=== PATIENT | male | born 1955 | race Asian ===

== ENCOUNTER → 2020-08-29 08:00 | Outpatient (CLI) | payer OTHER, SELFPAY ==
[2020-08-29] MEDS: COVID-19 VACC, Ad26(JANSSEN)/PF 0.5 ML IM (08:09)
== END ==
PROVIDERS: Visit Provider Internal Medicine
DX: Z23 Encounter for immunization (principal)
CPT/HCPCS: 0031A; 91303

== ENCOUNTER → 2020-09-26 09:14 | Outpatient (CLI) | payer OTHER, SELFPAY ==
[2020-09-26 10:49] LABS: COVID19 -Nasal RAPID Negative (Negative)
== END ==
PROVIDERS: PCP Family Medicine; Visit Provider Surgery
DX: Z20.822 Contact with and (suspected) exposure to COVID-19 (principal)
CPT/HCPCS: 87635

== ENCOUNTER 2020-09-29 06:30 | Day surgery (SDC) | payer OTHER, SELFPAY ==
[2020-09-29] VITALS (7 sets, daily range): BP systolic 117–160; BP diastolic 73–98; PULSE 68–77; RESP 8–16; TEMP 36.2; O2SAT 96–99; BMI 25.7
--- NOTE | 2020-09-29 | PATH_ITS ---
[facility] Accession Number: [id number] . 01 Material submitted: . PART A: stomach - RANDOM STOMACH BIOPSY PART B: esophagus, E-G Junction - GE JUNCTION PART C: colon - DESCENDING COLON POLYP . 02 Diagnosis: A. Random Stomach, Biopsies: Gastric body mucosa with no diagnostic abnormality. No evidence of Helicobacter organisms on H/E stain. Negative for intestinal metaplasia. Negative for dysplasia and malignancy. . B. Gastroesophageal Junction, Biopsy: Squamocolumnar junctional mucosa with no diagnostic abnormality. Negative for intestinal metaplasia. Negative for dysplasia and malignancy. . C. Descending Colon Polyp, Biopsy: Tubular adenoma. [facility] 10/02/2020 1550 Local . 02 Electronically signed: . Lawrence Walton MD, PhD, Pathologist NPI- [id number] . 01 Gross description: . Part A: RANDOM STOMACH BIOPSY: Received in formalin are 2 fragment(s) of martinez, soft tissue measuring 0.1 x 0.1 x 0.1 cm to 0.3 x 0.2 x 0.2 cm submitted entirely in 1 cassette(s) Part B: GE JUNCTION: Received in formalin is 1 fragment(s) of martinez, soft tissue measuring 0.1 x 0.1 x 0.1 cm submitted entirely in 1 cassette(s) Part C: DESCENDING COLON POLYP: Received in formalin are 2 fragment(s) of martinez, soft tissue measuring 0.2 x 0.2 x 0.2 cm to 0.3 x 0.3 x 0.2 cm submitted entirely in 1 cassette(s) /LETICIA 09/30/2020 1940 Local . 02 Pathologist provided ICD-10: K21.9, D12.4 . 02 CPT . 609527, 820036, 306863 Performed at: 01 [facility] [address] [place] [address], [place], [place] [id number] MD Alec Fisher MD Phone: [phone] Performed at: [facility] [address] [place], [place] [id number] MD Reina Way MD Phone: [phone]
[2020-09-29] MEDS: LACTATED RINGERS 1,000 ML 42 ML IV (07:27)
--- NOTE | 2020-09-29 07:38 | PM.PREOP ---
Pre-operative Note Interval Note History & Physical reviewed/Exam performed by Physician: Yes Changes to H&P: No
[2020-09-29] MEDS: LIDOCAINE 4% SOLN 50 ML 20 ML TOP (07:45)
[2020-09-29] MEDS: fentaNYL 250 MCG/5 ML INJ IV (08:09)
[2020-09-29] MEDS: MIDAZOLAM 5 MG/5 ML VIAL IV (08:09)
--- NOTE | 2020-09-29 08:25 | PM.OP.ENDO ---
Operative Date/Time/Diagnoses Date of procedure: 09/29/20 Time of procedure: 08:26 Pre-op diagnosis: screening colonoscopy GERD Post-op diagnosis: same Procedure & Clinicians Study performed: Esophagoduodenoscopy Colonoscopy Same procedure as scheduled: Yes Indications: Screening colonoscopy, GERD Surgeon: Sorin Way Procedure Notes Procedure in detail: Medications: Conscious sedation using 7mg IV midazolam and 200mcg IV of fentanyl The history and physical was performed/updated and the patient is ASA class is 2. The procedure was discussed in detail with the patient. Potential risks complications including infection, bleeding, missed diagnosis, perforation, need for surgery, and were explained. Their questions were answered and informed consent was obtained. Patient was brought to the procedure room and placed standard monitoring equipment. The patient's vital signs were monitored continuously throughout the entire procedure. Prior to starting time-out was performed. The patient was placed in the left lateral recumbent position. Procedural sedation was administered. A bite block was placed. the scope was inserted into the mouth and advanced through the esophagus and into the stomach. The stomach no was notable for mild gastritis, multiple random gastric biopsies were taken with the forceps. The pylorus was intubated and the duodenum was normal to the 2nd portion. The scope was retroflexed within the stomach and there was a moderate size hiatal hernia. The scope was withdrawn into the esophagus the Z line was seen at 35 cm from the incisions. There was esophagitis of the distal esophagus spanning approximately 3 cm and random biopsies of the GE junction were taken with forceps.. Stomach was desufflated and scope removed. Patient tolerated procedure well. Examination began with a thorough inspection of the perianal area there was no evidence of fissures, fistulae, external hemorrhoids or cutaneous malignancy. The colonoscopy scope was then placed into the anal canal and was advanced to the cecum, which was identified by the ileocecal valve, the appendiceal orifice and the confluence of the taenia. The scope was then slowly withdrawn examining colon thoroughly in all directions, irrigating it of any residual stool. 1. Sigmoid diverticulosis 2. 5 mm polyp within the descending colon removed with forceps 3. Grade 2 internal hemorrhoids The patient tolerated the procedure well. They will be discharged once criteria are met. The prep was of good/excellent quality. The withdrawl time was 8 minutes. The sedation time was 28 minutes. Specimen(s): other (GE junction, random gastric, descending colon polyp) Impression: Gastritis, esophagitis, colonic polyp Post-procedure Recommendations: Colonscopy in 5 years and Reflux diet Plan for aftercare: Increase omeprazole 40 mg b.i.d.
== END 2020-09-29 09:04 | disposition home or self-care (01) ==
PROVIDERS: PCP Family Medicine; Referring Provider Family Medicine; Visit Provider Surgery
PROC: 0DJ08ZZ Inspection of Upper Intestinal Tract, Via Natural or Artificial Opening Endoscopic (ICD-10-PCS; CPT 43235; principal; 2020-09-29 07:45)
PROC: 0DJD8ZZ Inspection of Lower Intestinal Tract, Via Natural or Artificial Opening Endoscopic (ICD-10-PCS; CPT 45378; 2020-09-29 07:45)
DX: Z12.11 Encounter for screening for malignant neoplasm of colon (principal); K21.9 Gastro-esophageal reflux disease without esophagitis; K57.30 Diverticulosis of large intestine without perforation or abscess without bleeding; K64.1 Second degree hemorrhoids; K20.90 Esophagitis, unspecified without bleeding; K44.9 Diaphragmatic hernia without obstruction or gangrene; D12.4 Benign neoplasm of descending colon
CPT/HCPCS: 45380; 43239; 99152; 99153; J2250; J3010